=== PATIENT | male | born 1940 | race Caucasian/White ===

== ENCOUNTER 2022-11-13 11:50 | Outpatient (CLI) | payer MEDICARE, OTHER | END 2022-11-13 11:51 | disposition home or self-care (01) | LOC: BICMRI 11:50 | PROVIDERS: ATTEND Neurological Surgery | DX: M47.26 Other spondylosis with radiculopathy, lumbar region (principal); M51.16 Intervertebral disc disorders with radiculopathy, lumbar region; M48.061 Spinal stenosis, lumbar region without neurogenic claudication; M89.38 Hypertrophy of bone, other site; T17.1XXA Foreign body in nostril, initial encounter | CPT/HCPCS: 70250; 72148 ==

== ENCOUNTER 2024-01-25 07:24 | Day surgery (SDC) | payer MEDICARE ==
[2024-01-22 10:25] VITALS: BMI 26.2
[2024-01-25] MEDS ORDERED: Isosulfan Blue 50 MG/5 ML VIAL ONE (10:51)
[2024-01-25] MEDS ORDERED: Bupivacaine 0.25% HCL 30 ML VIAL ONE (10:52)
[2024-01-25] MEDS ORDERED: EPINEPHrine 1 MG/ML VIAL ONE (10:52)
[2024-01-25] MEDS ORDERED: Heparin 5,000 UNITS/ML VIAL ONE (11:30)
[2024-01-25] MEDS ORDERED: Sodium Chloride 0.9% 100 ML ONE (11:59)
[2024-01-25] MEDS ORDERED: CEFAZOLIN 2 GM VIAL ONE (11:59)
[2024-01-25] MEDS ORDERED: Rocuronium Bromide 10 MG/ML (10ML VIAL) ONE (12:17)
[2024-01-25] MEDS ORDERED: fentaNYL 50 mcg/mL 1 mL Vial ONE ×2 (14:19→14:29)
[2024-01-25] MEDS ORDERED: SUGAMMADEX SODIUM 200 MG/2 ML VIAL ONE (14:19)
[2024-01-25] MEDS ORDERED: Lidocaine 1% PF 5 ML VIAL ONE (14:19)
[2024-01-25] MEDS ORDERED: fentaNYL PF 100 MCG/2 ML SYRINGE ONE (14:19)
[2024-01-25] MEDS ORDERED: Ketamine In 0.9 % NaCl 50 MG/5 ML SYRINGE ONE (14:19)
[2024-01-25] MEDS ORDERED: PROPOFOL 20 ML ONE (14:19)
[2024-01-25] MEDS ORDERED: Dexamethasone 20 MG/5 ML VIAL ONE (14:19)
[2024-01-25] MEDS ORDERED: Midazolam HCl 2 mg/2 ml Vial ONE (14:19)
[2024-01-25] MEDS ORDERED: ePHEDrine Sulfate 50 MG/10 ML VIAL ONE (14:19)
[2024-01-25] MEDS ORDERED: Ondansetron PF 4 MG/2 ML Vial ONE (14:19)
== END 2024-01-25 16:20 | disposition home or self-care (01) ==
LOC: SDC 07:24
PROVIDERS: ATTEND Plastic Surgery
PROC: 0HB6XZZ Excision of Back Skin, External Approach (ICD-10-PCS; principal; 2024-01-25)
PROC: 07B60ZX Excision of Left Axillary Lymphatic, Open Approach, Diagnostic (ICD-10-PCS; 2024-01-25)
PROC: 07B50ZX Excision of Right Axillary Lymphatic, Open Approach, Diagnostic (ICD-10-PCS; 2024-01-25)
DX: C43.59 Malignant melanoma of other part of trunk (principal); L57.8 Other skin changes due to chronic exposure to nonionizing radiation; L82.1 Other seborrheic keratosis; E07.9 Disorder of thyroid, unspecified; M19.90 Unspecified osteoarthritis, unspecified site; N19 Unspecified kidney failure; Z88.2 Allergy status to sulfonamides; F17.200 Nicotine dependence, unspecified, uncomplicated; Z79.899 Other long term (current) drug therapy; Z98.890 Other specified postprocedural states
CPT/HCPCS: 11603; 11606; 12032; 13101; 13102 ×2; 38500; 93005; A6258; C1713; J0171; J0665; J1100; J1644; J2250; J2405; J2704; J3010; J3490; Q9968; 88305; 88307; 88331; 88332; 88342; 93010